=== PATIENT | male | born 1965 | race Hispanic/Latino ===

== ENCOUNTER 2016-10-20 10:36 | Inpatient (IN) | payer MEDICAID, OTHER ==
[2016-10-20 10:37] VITALS: BMI 23.1
[2016-10-20 11:51] LABS: BASO % 0.8 % (0.0-2.0); EOS # 0.2 K/uL (0.0-0.7); EOS % 3.4 % (0.0-4.0); HEMATOCRIT 41.2 % (35.0-51.0); LYMPH # 2.7 K/uL (1.0-4.3); LYMPH % 44.8 % (20.0-40.0); MEAN CELL VOLUME 94.5 fL (80.0-94.0); MEAN CORPUSCULAR HEMOGLOBIN 32.2 pg (27.0-31.0); MEAN CORPUSCULAR HGB CONC 34.1 g/dL (33.0-37.0); MEAN PLATELET VOLUME 7.5 fL (7.2-11.7); MONO # 0.4 K/uL (0.0-0.8); MONO % 7.3 % (0.0-10.0); NRBC % 0.1 % (0.0-2.0); WHITE BLOOD COUNT 6.1 K/uL (4.8-10.8)
[2016-10-20 12:00] LABS: CHLORIDE 105 mmol/L (98-107); POTASSIUM 3.9 mmol/L (3.6-5.2); SODIUM 147 mmol/L (132-148)
[2016-10-20 12:02] LABS: ALB/GLOB RATIO 1.6 (1.0-2.1); ALKALINE PHOSPHATASE 44 U/L (38-126); AST/SGOT 36 U/L (17-59); BILIRUBIN,TOTAL 0.3 mg/dL (0.2-1.3); BLOOD UREA NITROGEN 7 mg/dL (9-20); CARBON DIOXIDE 29 mmol/L (22-30); GFR AFRICAN-AMERICAN > 60; TOTAL PROTEIN 7.7 g/dL (6.3-8.3)
[2016-10-20 12:03] LABS: ALT/SGPT 16 U/L (21-72); CALCIUM 8.8 mg/dl (8.6-10.4); GLUCOSE,RANDOM 99 mg/dL (75-110)
--- NOTE | 2016-10-20 12:04 | C.PDOC ---
History Of Present Illness <VinSana L - Last Filed: 10/20/16 18:51> <Yash Atkins E - Last Filed: 10/20/16 20:16> Patient is a 51 year old male who presents to the ER for a psychiatric evaluation. Patient reports suicidal and homocidal ideation with no plan. Patient admits to ETOH use just prior to arrival. Patient is agitated and yelling at staff. History of schizophrenia. Has no physical complaints at this time. (Sana Banuelos) History Per: Patient History/Exam Limitations: intoxication Onset/Duration Of Symptoms: Hrs Current Symptoms Are (Timing): Still Present Suicide/Self Injury Attempted (Context): None Modifying Factor(s): Alcohol Associated Symptoms: Suicidal Thoughts, Other (Homocidal thoughts). denies: Suicidal Plan <Sana Banuelos - Last Filed: 10/20/16 18:51> <Yash Atkins E - Last Filed: 10/20/16 20:16> Time Seen by Provider: 10/20/16 11:39 Chief Complaint (Nursing): Substance Abuse Past Medical History Reviewed: Historical Data, Nursing Documentation, Vital Signs - Medical History PMH: COPD, Depression, Schizophrenia (pt denies.) Family History: States: Unknown Family Hx - Social History Hx Tobacco Use: Yes Hx Alcohol Use: Yes Hx Substance Use: Yes - Immunization History Hx Tetanus Toxoid Vaccination: No Hx Influenza Vaccination: No Hx Pneumococcal Vaccination: No <VinSana L - Last Filed: 10/20/16 18:51> Vital Signs: Last Vital Signs Temp 98.0 F 10/20/16 17:29 Pulse 72 10/20/16 17:29 Resp 20 10/20/16 17:29 BP 97/61 L 10/20/16 17:29 Pulse Ox 97 10/20/16 18:52 - [facility] Procedures ALCOHOL DETOXIFICATION (01/09/15) OTHER GROUP THERAPY (11/09/14) PSYCHIA INTERV/EVAL NEC (11/06/14) Review Of Systems Cardiovascular: Negative for: Chest Pain Respiratory: Negative for: Shortness of Breath Gastrointestinal: Negative for: Nausea, Vomiting Psych: Positive for: Other (Homocidal and suicidal thoughts). Negative for: Suicidal ideation <Sana Banuelos - Last Filed: 10/20/16 18:51> Physical Exam - Physical Exam Appears: Non-toxic, Agitated, Other (ETOH on breath) Skin: Normal Color, Warm, Dry Head: Atraumatic, Normacephalic Eye(s): bilateral: Normal Inspection Nose: Normal Oral Mucosa: Moist Neck: Normal ROM Cardiovascular: Rhythm Regular Respiratory: No Rhonchi, No Wheezing, Other (No acute respiratory distress. Patient speaking in complete sentences.) Extremity: Normal ROM Neurological/Psych: Oriented x3, Normal Speech, Other (agitated, bizarre affect) <Sana Banuelos - Last Filed: 10/20/16 18:51> <Yash Atkins E - Last Filed: 10/20/16 20:16> - Physical Exam Additional Physical Exam Comments: Physical exam limited due to patient not cooperating. (Sana Banuelos) ED Course And Treatment - Laboratory Results Result Diagrams: 10/20/16 11:44 10/20/16 11:44 Lab Interpretation: No Acute Changes O2 Sat by Pulse Oximetry: 97 <Sana Banuelos - Last Filed: 10/20/16 18:51> - Laboratory Results Result Diagrams: 10/20/16 11:44 10/20/16 11:44 Progress Note: Pt was signed out to me at 7pm by Dr. Scherer/SUZANNA Banuelos as already medically clear, pending field crop i farmworker evaluation. Pt will be admitted to psych. housekeeping department worker requested to give pt Librium. <Yash Atkins E - Last Filed: 10/20/16 20:16> Medical Decision Making <Sana Banuelos - Last Filed: 10/20/16 18:51> <Yash Atkins E - Last Filed: 10/20/16 20:16> Medical Decision Making: Labs ordered and reviewed. Patient acutely intoxicated will place on observation. housekeeping department worker made aware (Sana Banuelos) ED OBSERVATION Date of observation admission: 10/20/16 Time of observation admission: 11:14 <Sana Banuelos - Last Filed: 10/20/16 18:51> <Yash Atkins E - Last Filed: 10/20/16 20:16> - Observation admission statement Patient is being placed in observation because:: Acute ETOH intoxication Psychiatric workup (Sana Banuelos) - Goals of Observation Goals of observation are:: Sobriety Psychiatric evaluation (Sana Banuelos) - Progress Note Progress Note: 10/20/16 11:45 BAL is 340. Crisis to evaluate at 20:00 10/20/16 13:59 Patient is asleep 10/20/16 16:45 Patient sleeping in no distress 10/20/16 19:00 Patient signed out to Dr Atkins pending crisis evaluation (Sana Banuelos) Disposition <Sana Banuelos - Last Filed: 10/20/16 18:51> - Disposition Disposition Time: 20:13 <Yash Atkins - Last Filed: 10/20/16 20:16> - Disposition Disposition: HOSPITALIZED Condition: STABLE - Clinical Impression Clinical Impression: Alcohol use disorder - Scribe Statement The provider has reviewed the documentation as recorded by the Scribe <Sana Banuelos - Last Filed: 10/20/16 18:51> <Yash Atkins - Last Filed: 10/20/16 20:16> - Scribe Statement David Carpenter All medical record entries made by the Scribe were at my direction and personally dictated by me. I have reviewed the chart and agree that the record accurately reflects my personal performance of the history, physical exam, medical decision making, and the department course for this patient. I have also personally directed, reviewed, and agree with the discharge instructions and disposition. (Sana Banuelos) Decision To Admit <Sana Banuelos - Last Filed: 10/20/16 18:51> - Pt Status Changed To: Hospital Disposition Of: Inpatient - Admit Certification Admit to Inpatient:: After my assessment, the patient will require hospitalization for at least two midnights. This is because of the severity of symptoms shown, intensity of services needed, and/or the medical risk in this patient being treated as an outpatient. - InPatient: Physician Admission Certification: I certify that this patient requires 2 or more midnights of care for the following reason:: Psych. - . Bed Request Type: Psychiatry Admitting Physician: Cristina Connors <Yash Atkins - Last Filed: 04/18/17 20:16> - . Patient Diagnosis: Alcohol use disorder
[2016-10-20 12:15] LABS: ALCOHOL SERUM 340 mg/dl (0-10)
[2016-10-20 13:18] LABS: URINE BACTERIA RARE (<OCC); URINE BILIRUBIN NEGATIVE (NEGATIVE); URINE BLOOD NEGATIVE (NEGATIVE); URINE COLOR Straw (YELLOW); URINE GLUCOSE (UA) NORMAL (Normal); URINE KETONE NEGATIVE (NEGATIVE); URINE LEUKOCYTE ESTERASE NEG Leu/uL (Negative); URINE PROTEIN NEGATIVE (NEGATIVE); URINE UROBILINOGEN NORMAL mg/dL (0.2-1.0); WBC URINE < 1 /hpf (0-5)
--- NOTE | 2016-10-21 10:22 | PCM.PSYCH ---
Initial Psychiatric Evaluation - Initial Psychiatric Evaluation Type of Admission: Voluntary Legal Status: Capacity Chief Complaint (in patient's own words): "I was suicidal" History of Present Illness and Precipitating Events: The pt is seen, chart reviewed, case discussed. This is a 51 yo WM, with 2 daughters, living with his father in [facility]. He is unemployed, not on disability and used to be homess. He is here for depression and SI with a plan to cut wrists. He says he is no longer suicidal but feels down still. Depressed for few weeks He admits to having relapsed after few months s/p discharge from last year. He drinks 12 of the 24 oz beers or 2 pints of vodka. He had wdw sxs but Ok with librium now. Denies drug use Denies psychotic or manic sxs Stressors; financial Past psych hx: Numerous admissions and 2 miranda attempts "long ago" He also used cocaine, mescalin, PC and MJ in the past Medical hx: Denies Family psych hx: Alcoholism in many people Current Medications: Active Medications Generic Name Dose Route Start Last Admin Trade Name Freq PRN Reason Stop Dose Admin Chlordiazepoxide 25 mg 10/20/16 20:56 10/20/16 21:48 Librium PO 10/24/16 20:57 25 mg Q4H PRN Administration Alcohol Withdrawal Chlordiazepoxide 25 mg 10/21/16 00:00 10/21/16 06:35 Librium PO 10/24/16 23:59 25 mg Q6 TAYA Administration Taper Clonidine HCl 0.1 mg 10/20/16 20:56 Catapres PO Q4H PRN Symptoms of alcohol withdrawl Fluoxetine HCl 20 mg 10/21/16 10:00 Prozac PO DAILY TAYA Folic Acid 1 mg 10/21/16 10:00 Folic Acid PO DAILY TAYA Gabapentin 300 mg 10/21/16 10:00 Neurontin PO BID TAYA Hydroxyzine HCl 50 mg 10/20/16 20:57 Atarax PO Q6H PRN Anxiety Ibuprofen 600 mg 10/20/16 20:57 Motrin Tab PO Q6H PRN Pain, moderate (4-7) Multivitamins 1 tab 10/21/16 10:00 Hexavitamin PO DAILY TAYA Thiamine HCl 100 mg 10/21/16 10:00 Vitamin B1 Tab PO DAILY TAYA Trazodone HCl 100 mg 10/20/16 20:56 10/20/16 21:47 Desyrel PO 100 mg HS PRN Administration Insomnia Past Psychiatric History - Past Psychiatric History Previous Treatment History: Inpatient Pertinent Medical Hx (Current Medical&Sleep Prob, Allergies): Allergies Allergy/AdvReac Type Severity Reaction Status Date / Time No Known Allergies Allergy Verified 11/26/15 12:26 No Known Home Med 09/19/15 Review of Systems - Neurological Neurological: UNREMARKABLE - Psychiatric Psychiatric: Abnormal Sleep Pattern, Anhedonia, Anxiety, Change in Appetite, Depression, Difficulty Concentrating, Irritability. absent: Hallucinations, Homicidal Ideation, Suicidal Ideation Mental Status Examination - Personal Presentation Personal Presentation: Looks stated age - Affect Affect: Constricted - Motor Activity Motor Activity: Calm - Reliability in Providing Information Reliability in Providing Information: Good - Speech Speech: Organized - Mood Mood: Depressed, Anxious - Formal Thought Process Formal Thought Process: No Impairment - Cognitive Functions Orientation: Person, Place, Situation, Time Sensorium: Alert Attention/Concentration: Attentive Estimate of Intelligence: Average Judgement: Imparied, as evidence by: Poor judgement Memory: Recent intact, as evidence by: Ability to recall events of the day, Remote intact, as evidenced by: Abilit to recall sig. life events - Risk Risk: Seizure, Withdrawal, Diminished functioning - Limitations Limitations: Living alone DSM 5 DX - DSM 5 DSM 5 Diagnosis: Major depressive d/o - recurrent, severe, non-psychotic Alcohol withdrawal Alcohol use d/o -severe - Recommended/Plan of Treatment Treatment Recommendations and Plan of Treatment: Depression: - Prozac - Support and psychoed - Indiv tx - Groups and activities Alcohol: - Librium detox - gabapentin - GA for abstinence - groups and activities - As needed meds 33 min Projected ELOS: 5 days Prognosis: good Discharge Plan and Discharge Criteria: no SI or alcohol wdw refer to IOP - Smoking Cessation Smoking Cessation Initiated: Yes
[2016-10-21] MEDS: Multiple Vitamins Tab PO SCH (11:24)
[2016-10-22] MEDS: Multiple Vitamins Tab PO SCH (10:33)
--- NOTE | 2016-10-22 23:30 | PCM.PYCHPN ---
Psychiatric Progress Note - Psychiatric Progress Note Patient seen today, length of contact: 17 min Patient Chief Complaint: "I couldn't sleep well" Problems Identified/Issues Discussed: The pt is seen, chart reviewed, case discussed with staff. The pt is compliant with medications and reports no side-effects. Symptoms are improving but needs more time to stabilize. After care discussed, support and psychoeducation given. NV and CBT used briefly. Medication Change: Yes (detox changes daily) Medical Record Reviewed: Yes Mental Status Examination - Cognitive Function Orientation: Person, Place, Situation, Time Memory: Impaired Attention: Poor Concentration: Poor Association: Loose Fund of Knowledge: Poor - Mood Mood: Depressed, Anxious - Affect Affect: Constricted - Speech Speech: Appropriate - Formal Thought Process Formal Thought Process: No Impairment - Suicidal Ideation Suicidal Ideation: No - Homicidal Ideation Homicidal Ideation: No Goal/Treatment Plan - Goal/Treatment Plan Need for Continued Stay: Discharge may exacerbated symptoms, Severe functional impairment Progress Toward Problem(s) and Goals/Treatment Plan: Depression: - Prozac - Support and psychoed - Indiv tx - Groups and activities Alcohol: - Librium detox - gabapentin - NV for abstinence - groups and activities - As needed meds Estimated Date of D/C: 10/28/16
[2016-10-23] MEDS: Multiple Vitamins Tab PO SCH (11:01)
--- NOTE | 2016-10-23 14:53 | PCM.PYCHPN ---
Psychiatric Progress Note - Psychiatric Progress Note Patient seen today, length of contact: 16 min Patient Chief Complaint: "I am better today" Problems Identified/Issues Discussed: The pt is seen, chart reviewed, case discussed with staff. Symptoms of depression and withdrawal are improving. He is more social After care discussed, will go to [place] [facility]. Support and psychoeducation given. AR and CBT used briefly. Medication Change: Yes (detox changes daily) Medical Record Reviewed: Yes Mental Status Examination - Cognitive Function Orientation: Person, Place, Situation, Time Memory: Impaired Attention: Poor Concentration: Poor Association: WNL Fund of Knowledge: Poor - Mood Mood: Depressed, Anxious - Affect Affect: Constricted - Speech Speech: Appropriate - Formal Thought Process Formal Thought Process: No Impairment - Suicidal Ideation Suicidal Ideation: No - Homicidal Ideation Homicidal Ideation: No Goal/Treatment Plan - Goal/Treatment Plan Need for Continued Stay: Discharge may exacerbated symptoms, Severe functional impairment Progress Toward Problem(s) and Goals/Treatment Plan: Depression: - Prozac - Support and psychoed - Indiv tx - Groups and activities Alcohol: - Librium detox - gabapentin - AR for abstinence - groups and activities - As needed meds Estimated Date of D/C: 10/28/16 - Smoking Cessation Smoking Cessation Initiated: Yes
[2016-10-24] MEDS: Multiple Vitamins Tab PO SCH (09:41)
--- NOTE | 2016-10-24 12:48 | PCM.PYCHPN ---
Psychiatric Progress Note - Psychiatric Progress Note Patient seen today, length of contact: 16 min Patient Chief Complaint: I'm still feeling withdrawal symptoms Problems Identified/Issues Discussed: Patient seen and evaluated, chart reviewed and discussed with the nurse. The patient reports improvement in his mood but still reports withdrawal symptoms including shakes, anxiety, headaches and sweating. As per the nurse yesterday he was reporting depressed mood. But today he is hopeful and denies any suicidal ideation or homicidal ideation. He is taking medications and denies any side effects. Supportive therapy and psychoeducation were given. Medication Change: Yes (Librium when necessary) Medical Record Reviewed: Yes Mental Status Examination - Cognitive Function Orientation: Person, Place, Situation, Time Memory: Impaired Attention: Poor Concentration: Poor Association: WNL Fund of Knowledge: Poor - Mood Mood: Depressed, Anxious - Affect Affect: Constricted - Speech Speech: Appropriate - Formal Thought Process Formal Thought Process: No Impairment - Suicidal Ideation Suicidal Ideation: No - Homicidal Ideation Homicidal Ideation: No Goal/Treatment Plan - Goal/Treatment Plan Need for Continued Stay: Discharge may exacerbated symptoms, Severe functional impairment Progress Toward Problem(s) and Goals/Treatment Plan: Major depressive d/o - recurrent, severe, non-psychotic Alcohol withdrawal Alcohol use d/o -severe - Recommended/Plan of Treatment Treatment Recommendations and Plan of Treatment: Depression: - Prozac - Support and psychoed - Indiv tx - Groups and activities Alcohol: - Librium detox - gabapentin - [place] for abstinence - groups and activities - As needed meds Estimated Date of D/C: 10/28/16 - Smoking Cessation Smoking Cessation Initiated: No
[2016-10-25 07:45] VITALS: O2SAT 99
[2016-10-25] MEDS: Multiple Vitamins Tab PO SCH (09:00)
--- NOTE | 2016-10-25 22:06 | PCM.PYCHPN ---
Psychiatric Progress Note - Psychiatric Progress Note Patient seen today, length of contact: 16 min Patient Chief Complaint: Feeling little better Problems Identified/Issues Discussed: Patient seen and evaluated, chart reviewed and discussed with the nurse. Today patient reports improvement his mood and reports improvement in the withdrawal symptoms. However history reports depressed mood and withdrawal symptoms including anxiety, headaches and sweating. He is taking medications and denies any side effects. Supportive therapy and psychoeducation were given. Medication Change: No Medical Record Reviewed: Yes Mental Status Examination - Cognitive Function Orientation: Person, Place, Situation, Time Memory: Impaired Attention: WNL Concentration: Poor Association: WNL Fund of Knowledge: Poor - Mood Mood: Anxious - Affect Affect: Constricted - Speech Speech: Appropriate - Formal Thought Process Formal Thought Process: No Impairment - Suicidal Ideation Suicidal Ideation: No - Homicidal Ideation Homicidal Ideation: No Goal/Treatment Plan - Goal/Treatment Plan Need for Continued Stay: Discharge may exacerbated symptoms, Severe functional impairment Progress Toward Problem(s) and Goals/Treatment Plan: Major depressive d/o - recurrent, severe, non-psychotic Alcohol withdrawal Alcohol use d/o -severe - Recommended/Plan of Treatment Treatment Recommendations and Plan of Treatment: Depression: - Prozac - Support and psychoed - Indiv tx - Groups and activities Alcohol: - Librium detox - gabapentin - GA for abstinence - groups and activities - As needed meds Estimated Date of D/C: 10/28/16
[2016-10-26] MEDS: Multiple Vitamins Tab PO SCH (09:38)
--- NOTE | 2016-10-26 16:09 | PCM.PYCHPN ---
Psychiatric Progress Note - Psychiatric Progress Note Patient seen today, length of contact: 16 min Patient Chief Complaint: "I am feeling so so today" Problems Identified/Issues Discussed: The pt is seen, chart reviewed, case discussed with staff Symptoms of depression are improving but patient reports not sleeping well and having shakes and sweats at night. Patient is done with taper and aftercare was discussed. He will go to [facility]. Patient denies any suicidal ideation. Support and psychoeducation given. Medication Change: Yes (Gabapentin) Medical Record Reviewed: Yes Mental Status Examination - Cognitive Function Orientation: Person, Place, Situation, Time Memory: Intact Attention: WNL Concentration: WNL Association: WNL Fund of Knowledge: Poor - Mood Mood: Anxious - Affect Affect: Constricted - Speech Speech: Appropriate - Formal Thought Process Formal Thought Process: No Impairment - Suicidal Ideation Suicidal Ideation: No - Homicidal Ideation Homicidal Ideation: No Goal/Treatment Plan - Goal/Treatment Plan Need for Continued Stay: Severe depression anxiety, Discharge may exacerbated symptoms, Severe functional impairment Progress Toward Problem(s) and Goals/Treatment Plan: Depression: - Prozac - Support and psychoed - Indiv tx - Groups and activities Alcohol: - Librium detox - gabapentin - [place] for abstinence - groups and activities - As needed meds Estimated Date of D/C: 10/27/16 ([facility]) - Smoking Cessation Smoking Cessation Initiated: No
[2016-10-27] MEDS: Multiple Vitamins Tab PO SCH (09:45)
--- NOTE | 2016-10-27 16:12 | PCM.PYCHPN ---
Psychiatric Progress Note - Psychiatric Progress Note Patient seen today, length of contact: 18 min Patient Chief Complaint: "My mood isn't good" Problems Identified/Issues Discussed: The pt is seen, chart reviewed, case discussed with staff Pt reports that although he is feeling better he still has some shakiness and trouble sleeping. He took an extra dose of Librium last night. His mood has not been good and finds himself getting easily aggravated by other people in the unit but has not reacted. Aftercare was discussed and patient will go to [facility]. Strategies to avoid relapse were discussed such as attending worship and avoiding friends that drink. Patient denies S/I. Support and psychoeducation given. Medication Change: Yes (Gabapentin) Medical Record Reviewed: Yes Mental Status Examination - Cognitive Function Orientation: Person, Place, Situation, Time Memory: Intact Attention: WNL Concentration: WNL Association: WNL Fund of Knowledge: Poor - Mood Mood: Anxious - Affect Affect: Constricted - Speech Speech: Appropriate - Formal Thought Process Formal Thought Process: No Impairment - Suicidal Ideation Suicidal Ideation: No - Homicidal Ideation Homicidal Ideation: No Goal/Treatment Plan - Goal/Treatment Plan Need for Continued Stay: Severe depression anxiety, Discharge may exacerbated symptoms, Severe functional impairment Progress Toward Problem(s) and Goals/Treatment Plan: Depression -Prozac -support and psychoeducation -Individual therapy -Participation in groups and activities Alcohol -Medications as needed -TN for abstinence -groups and activities -support and psychoeducation Estimated Date of D/C: 10/28/16 ([facility])
--- NOTE | 2016-10-28 09:44 | PCM.PYCHDC ---
Mental Status Examination - Mental Status Examination Orientation: Person, Place, Situation, Time Memory: Intact Mood: Anxious Affect: Broad Speech: Appropriate Attention: WNL Concentration: WNL Association: WNL Fund of Knowledge: WNL Formal Thought Process: No Impairment Suicidal Ideation: No Current Homicidal Ideation?: No Discharge Summary - Discharge Note Reason for Hospitalization: Pt presented to the ER for depression and SI with a plan to cut wrists Consultations:: List each consultation separately and include: 1. Reason for request. 2. Findings. 3. Follow-up Summary of Hospital Course include:: 1. Description of specific treatment plan utilized for patients during their course of treatmen. 2. Summarize the time- course for resolution of acute symptoms and/or regressed behaviors. 3. Describe issues identified and worked on during hospitalization. 4. Describe medication utilized. 5. Describe medical problems identified and treated. 6. Reassessment of suicide risk Summary of Hospital Course: The pt is seen, chart reviewed, case discussed. On admission: This is a 51 yo WM, with 2 daughters, living with his father in [facility]. He is unemployed, not on disability and used to be homess. He is here for depression and SI with a plan to cut wrists. He says he is no longer suicidal but feels down still. Depressed for few weeks He admits to having relapsed after few months s/p discharge from last year. He drinks 12 of the 24 oz beers or 2 pints of vodka. He had wdw sxs but Ok with librium now. Denies drug use Denies psychotic or manic sxs Stressors; financial Past psych hx: Numerous admissions and 2 miranda attempts "long ago" He also used cocaine, mescalin, PC and MJ in the past Medical hx: Denies Family psych hx: Alcoholism in many people Hospital course: Pt reports that he is feeling ok and has some anxiety. He denies any S/I. He slept well last night and denies any withdrawal symptoms. After care was discussed and he will be going home to live with his father and continue with treatment at [facility]. Support and psychoeducation was given. Attended groups and activities ID, CBT used Librium detox completed Pt responded well to treatment but still carries a risk of relapse due to minimizing his need for treatment. - Final Diagnosis (DSM 5) Condition upon Discharge: GOOD DSM 5: Major depressive d/o - recurrent, severe, non-psychotic Alcohol use d/o -severe Alcohol withdrawal Disposition: HOME/ ROUTINE Follow-up Treatment Plan: Continue below meds Attend aftercare: FOC Use relapse prevention skills Attend AA Return to ER if experience suicidal ideation, homicidal ideation, agitation Prescriptions/Medication Reconciliation: FLUoxetine [Prozac] 20 mg PO DAILY #30 cap Gabapentin [Neurontin] 300 mg PO BID #60 cap traZODone [Desyrel] 100 mg PO HS PRN #30 tab PRN Reason: Insomnia - Smoking Cessation Smoking Cessation Medication prescribed: No - Antipsychotic Medications Pt discharged on 2 or more routine antipsychotic medications: No
[2016-10-28] MEDS: Multiple Vitamins Tab PO SCH (09:47)
[2016-10-28 10:20] VITALS: BP 100/64; PULSE 73; RESP 19; TEMP 97.8
== END 2016-10-28 14:15 | disposition home or self-care (01) | DRG 750 ==
LOC: C.ER 10:36 → C.9OBSV 11:52 → OBSVTOIN 20:16 → C.5E 20:34
PROVIDERS: ADMIT Psychiatry & Neurology Psychiatry; ATTEND Psychiatry & Neurology Psychiatry
PROC: HZ2ZZZZ Detoxification Services for Substance Abuse Treatment (ICD-10-PCS; principal; 2016-10-21)
PROC: HZ36ZZZ Individual Counseling for Substance Abuse Treatment, Psychoeducation (ICD-10-PCS; 2016-10-21)
PROC: HZ46ZZZ Group Counseling for Substance Abuse Treatment, Psychoeducation (ICD-10-PCS; 2016-10-21)
PROC: HZ59ZZZ Individual Psychotherapy for Substance Abuse Treatment, Supportive (ICD-10-PCS; 2016-10-21)
DX: F10.220 Alcohol dependence with intoxication, uncomplicated (principal); J44.9 Chronic obstructive pulmonary disease, unspecified; R45.851 Suicidal ideations; F33.2 Major depressive disorder, recurrent severe without psychotic features; F20.9 Schizophrenia, unspecified; F10.239 Alcohol dependence with withdrawal, unspecified; Y90.8 Blood alcohol level of 240 mg/100 ml or more; F41.9 Anxiety disorder, unspecified

== ENCOUNTER 2016-12-14 08:25 | Inpatient (IN) | payer MEDICAID, OTHER ==
[2016-12-14 08:31] VITALS: BMI 18.2
[2016-12-14] MEDS ORDERED: Sodium Chloride 0.9% 1,000 ML IV ONE (08:37)
[2016-12-14] MEDS ORDERED: Sodium Chloride 0.9% 1,000 ML ONE (09:03)
[2016-12-14 09:10] LABS: BASO # 0.1 K/uL (0.0-0.2); EOS # 0.3 K/uL (0.0-0.7); EOS % 4.6 % (0.0-4.0); HEMATOCRIT 41.8 % (35.0-51.0); LYMPH # 2.9 K/uL (1.0-4.3); LYMPH % 49.3 % (20.0-40.0); MEAN CELL VOLUME 93.9 fL (80.0-94.0); MEAN CORPUSCULAR HEMOGLOBIN 31.7 pg (27.0-31.0); MEAN CORPUSCULAR HGB CONC 33.8 g/dL (33.0-37.0); MEAN PLATELET VOLUME 7.6 fL (7.2-11.7); MONO # 0.5 K/uL (0.0-0.8); MONO % 7.9 % (0.0-10.0); RED CELL DISTRIBUTION WIDTH 13.7 % (11.5-14.5); WHITE BLOOD COUNT 5.8 K/uL (4.8-10.8)
[2016-12-14 09:27] LABS: CHLORIDE 102 mmol/L (98-107); SODIUM 140 mmol/L (132-148)
[2016-12-14 09:28] LABS: POTASSIUM 3.9 mmol/L (3.6-5.2)
[2016-12-14 09:30] LABS: ALB/GLOB RATIO 1.6 (1.0-2.1); ALKALINE PHOSPHATASE 43 U/L (38-126); ALT/SGPT 14 U/L (21-72); AST/SGOT 31 U/L (17-59); BILIRUBIN,TOTAL 0.5 mg/dL (0.2-1.3); BLOOD UREA NITROGEN 6 mg/dL (9-20); CARBON DIOXIDE 25 mmol/L (22-30); GFR AFRICAN-AMERICAN > 60; GLUCOSE,RANDOM 114 mg/dL (75-110); TOTAL PROTEIN 6.8 g/dL (6.3-8.3)
[2016-12-14 09:31] LABS: CALCIUM 8.4 mg/dl (8.6-10.4)
--- NOTE | 2016-12-14 09:34 | C.PDOC ---
History Of Present Illness 51 yr old male presents to the ER stating " doesn't feel right" and is also requesting detox from alcohol. Reports last drink was this morning. Denies chest pain, SOB, nausea, vomiting, abdominal pain, headache, weakness, numbness , SI or HI. Time Seen by Provider: 12/14/16 08:33 Chief Complaint (Nursing): Substance Abuse History Per: Patient History/Exam Limitations: no limitations Onset/Duration Of Symptoms: Persistent Current Symptoms Are (Timing): Still Present Modifying Factor(s): Alcohol Past Medical History Reviewed: Historical Data, Nursing Documentation, Vital Signs Vital Signs: Last Vital Signs Temp 99.0 F 12/14/16 08:31 Pulse 72 12/14/16 16:43 Resp 18 12/14/16 16:43 BP 109/64 12/14/16 16:43 Pulse Ox 99 12/14/16 16:43 - Medical History PMH: COPD, Depression, Schizophrenia (pt denies.) - [facility] Procedures ALCOHOL DETOXIFICATION (01/09/15) DETOXIFICATION SERVICES FOR SUBSTANCE ABUSE TREATMENT (10/20/16) GROUP INFORMATION ASSURANCE ANALYST FOR SUBSTANCE ABUSE TREATMENT, PSYCHOEDUCATION (10/20/16) INDIV INFORMATION ASSURANCE ANALYST FOR SUBSTANCE ABUSE TREATMENT, PSYCHOEDUCATION (10/20/16) INDIV PSYCHOTHERAPY FOR SUBSTANCE ABUSE TREATMENT, SUPPORT (10/20/16) OTHER GROUP THERAPY (11/09/14) PSYCHIA INTERV/EVAL NEC (11/06/14) Family History: States: No Known Family Hx - Social History Hx Tobacco Use: Yes Hx Alcohol Use: Yes Hx Substance Use: Yes - Immunization History Hx Tetanus Toxoid Vaccination: No Hx Influenza Vaccination: No Hx Pneumococcal Vaccination: No Review Of Systems Except As Marked, All Systems Reviewed And Found Negative. Cardiovascular: Negative for: Chest Pain Respiratory: Negative for: Shortness of Breath Gastrointestinal: Negative for: Nausea, Vomiting, Abdominal Pain Neurological: Negative for: Headache Psych: Negative for: Suicidal ideation Physical Exam - Physical Exam Appears: Well, Non-toxic, No Acute Distress Skin: Warm, Dry, No Rash Head: Atraumatic, Normacephalic Oral Mucosa: Moist Chest: Symmetrical, No Tenderness Cardiovascular: Rhythm Regular, No Murmur Respiratory: Normal Breath Sounds, No Rales, No Rhonchi, No Wheezing Gastrointestinal/Abdominal: Normal Exam, Soft, No Tenderness, No Guarding, No Rebound Extremity: Normal ROM, No Swelling Neurological/Psych: Oriented x3, Normal Speech, Normal Motor ED Course And Treatment - Laboratory Results Result Diagrams: 12/14/16 09:02 12/14/16 09:02 O2 Sat by Pulse Oximetry: 97 Medical Decision Making Medical Decision Making: PLAN: * Alcohol Serum * Drug Screen * Lipase * CBC * CMP * Pepcid IVP * Zofran IVP * Sodium Chloride IV Disposition - Disposition Disposition: HOSPITALIZED Disposition Time: 16:00 Condition: STABLE - Clinical Impression Clinical Impression: Alcohol use disorder - Scribe Statement The provider has reviewed the documentation as recorded by the Marleniibnelida Harris Provider Attestation: All medical record entries made by the Keerthi were at my direction and personally dictated by me. I have reviewed the chart and agree that the record accurately reflects my personal performance of the history, physical exam, medical decision making, and the department course for this patient. I have also personally directed, reviewed, and agree with the discharge instructions and disposition.
[2016-12-14 10:05] LABS: ALCOHOL SERUM 329 mg/dl (0-10)
[2016-12-14 17:06] LABS: RBC URINE < 1 /hpf (0-3); URINE BILIRUBIN NEGATIVE (NEGATIVE); URINE BLOOD NEGATIVE (NEGATIVE); URINE COLOR Straw (YELLOW); URINE GLUCOSE (UA) NORMAL (Normal); URINE KETONE NEGATIVE (NEGATIVE); URINE LEUKOCYTE ESTERASE NEG Leu/uL (Negative); URINE PROTEIN NEGATIVE (NEGATIVE); URINE UROBILINOGEN NORMAL mg/dL (0.2-1.0)
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
[2016-12-15] MEDS: Multiple Vitamins Tab PO SCH (10:58)
[2016-12-16] MEDS: Multiple Vitamins Tab PO SCH (09:07)
--- NOTE | 2016-12-16 13:52 | PCM.PYCHPN ---
Psychiatric Progress Note - Psychiatric Progress Note Patient seen today, length of contact: 16 min Patient Chief Complaint: "I am not well but better" Problems Identified/Issues Discussed: The pt is seen, chart reviewed, case discussed with staff. The pt is compliant with medications and reports no side-effects. Symptoms are improving but needs more time to stabilize. After care discussed, support and psychoeducation given. Medication Change: Yes (detox changes daily) Medical Record Reviewed: Yes Mental Status Examination - Cognitive Function Orientation: Person, Place, Situation, Time Memory: Intact Attention: WNL Concentration: Poor Association: WNL Fund of Knowledge: Poor - Mood Mood: Anxious - Affect Affect: Constricted - Speech Speech: Appropriate - Formal Thought Process Formal Thought Process: No Impairment - Suicidal Ideation Suicidal Ideation: No - Homicidal Ideation Homicidal Ideation: No Goal/Treatment Plan - Goal/Treatment Plan Need for Continued Stay: Discharge may exacerbated symptoms, Severe functional impairment Progress Toward Problem(s) and Goals/Treatment Plan: Librium detox gabapentin Support and pscyhoed Mi and CBT attend groups and activities Refer to rehab Support and cbt for depression
[2016-12-17] MEDS: Multiple Vitamins Tab PO SCH (09:17)
--- NOTE | 2016-12-17 13:13 | PCM.PYCHPN ---
Psychiatric Progress Note - Psychiatric Progress Note Patient seen today, length of contact: 16 min Patient Chief Complaint: "I am better" Problems Identified/Issues Discussed: The pt is seen, chart reviewed, case discussed with staff. Symptoms of withdrawal are improving but needs more time to stabilize. OK used After care discussed, support and psychoeducation given. Medication Change: Yes (detox changes daily) Medical Record Reviewed: Yes Mental Status Examination - Cognitive Function Orientation: Person, Place, Situation, Time Memory: Intact Attention: WNL Concentration: Poor Association: WNL Fund of Knowledge: Poor - Mood Mood: Anxious - Affect Affect: Constricted - Speech Speech: Appropriate - Formal Thought Process Formal Thought Process: No Impairment - Suicidal Ideation Suicidal Ideation: No - Homicidal Ideation Homicidal Ideation: No Goal/Treatment Plan - Goal/Treatment Plan Need for Continued Stay: Discharge may exacerbated symptoms, Severe functional impairment Progress Toward Problem(s) and Goals/Treatment Plan: Librium detox gabapentin Support and pscyhoed Mi and CBT attend groups and activities Refer to rehab Support and cbt for depression Estimated Date of D/C: 12/18/16
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
[2016-12-18] MEDS: Multiple Vitamins Tab PO SCH (09:15)
[2016-12-18 09:32] VITALS: BP 100/65; PULSE 70; RESP 16; TEMP 97.6; O2SAT 97
== END 2016-12-18 10:10 | disposition home or self-care (01) | DRG 750 ==
LOC: C.ER 08:25 → C.7D 17:17
PROVIDERS: ADMIT Psychiatry & Neurology Psychiatry; ATTEND Psychiatry & Neurology Psychiatry
PROC: HZ2ZZZZ Detoxification Services for Substance Abuse Treatment (ICD-10-PCS; principal; 2016-12-15)
PROC: HZ52ZZZ Individual Psychotherapy for Substance Abuse Treatment, Cognitive-Behavioral (ICD-10-PCS; 2016-12-15)
PROC: HZ59ZZZ Individual Psychotherapy for Substance Abuse Treatment, Supportive (ICD-10-PCS; 2016-12-15)
PROC: HZ56ZZZ Individual Psychotherapy for Substance Abuse Treatment, Psychoeducation (ICD-10-PCS; 2016-12-15)
PROC: GZHZZZZ Group Psychotherapy (ICD-10-PCS; 2016-12-15)
DX: F10.230 Alcohol dependence with withdrawal, uncomplicated (principal); J44.9 Chronic obstructive pulmonary disease, unspecified; F33.40 Major depressive disorder, recurrent, in remission, unspecified; F20.9 Schizophrenia, unspecified; F17.210 Nicotine dependence, cigarettes, uncomplicated; Y90.8 Blood alcohol level of 240 mg/100 ml or more

== ENCOUNTER 2017-06-21 17:18 | Emergency (ER) | payer OTHER ==
[2017-06-21 17:18] VITALS: BMI 18.2
[2017-06-21 18:08] VITALS: BP 101/66; PULSE 85; RESP 15; TEMP 98.1; O2SAT 97
== END 2017-06-21 18:06 | disposition left against medical advice (07) ==
LOC: C.ER 17:18
DX: Z02.89 Encounter for other administrative examinations (principal); Z00.00 Encounter for general adult medical examination without abnormal findings

== ENCOUNTER 2017-08-19 21:59 | Emergency (ER) | payer OTHER ==
[2017-08-19 21:59] VITALS: BMI 18.2
[2017-08-19 22:43] VITALS: BP 107/71; PULSE 66; RESP 20; TEMP 97.3; O2SAT 100
== END 2017-08-19 22:51 | disposition left against medical advice (07) ==
LOC: C.ER 21:59
DX: Z02.89 Encounter for other administrative examinations (principal); F10.129 Alcohol abuse with intoxication, unspecified

== ENCOUNTER 2017-09-01 20:04 | Emergency (ER) | payer OTHER ==
[2017-09-01 20:04] VITALS: BMI 18.2
[2017-09-01 20:48] VITALS: BP 110/72; PULSE 70; RESP 18; TEMP 97.9; O2SAT 97
== END 2017-09-01 20:45 | disposition left against medical advice (07) ==
LOC: C.ER 20:04
DX: Z02.89 Encounter for other administrative examinations (principal); F19.10 Other psychoactive substance abuse, uncomplicated

== ENCOUNTER 2017-11-05 12:13 | Inpatient (IN) | payer MEDICAID, OTHER ==
[2017-11-05 12:22] VITALS: BMI 19.5
[2017-11-05 13:28] LABS: BASO # 0.1 K/uL (0.0-0.2); BASO % 1.2 % (0.0-2.0); EOS # 0.3 K/uL (0.0-0.7); EOS % 3.2 % (0.0-4.0); HEMOGLOBIN 15.3 g/dL (12.0-18.0); LYMPH # 3.6 K/uL (1.0-4.3); LYMPH % 43.9 % (20.0-40.0); MEAN CELL VOLUME 94.7 fL (80.0-94.0); MEAN CORPUSCULAR HEMOGLOBIN 33.3 pg (27.0-31.0); MEAN CORPUSCULAR HGB CONC 35.2 g/dL (33.0-37.0); MEAN PLATELET VOLUME 7.1 fL (7.2-11.7); MONO # 0.5 K/uL (0.0-0.8); MONO % 5.8 % (0.0-10.0); NEUT # 3.8 K/uL (1.8-7.0); NEUT % 45.9 % (50.0-75.0); NRBC % 0.1 % (0.0-2.0); RBC 4.59 Mil/uL (4.40-5.90); RED CELL DISTRIBUTION WIDTH 13.9 % (11.5-14.5); WHITE BLOOD COUNT 8.3 K/uL (4.8-10.8)
--- NOTE | 2017-11-05 13:29 | C.PDOC ---
History Of Present Illness 52 year old male, with PMHx of depression, presents to ED for evaluation of suicidal ideation. Pt admits to substance abuse. Denies HI, or any active physical complaints at this time. Time Seen by Provider: 11/05/17 12:32 Chief Complaint (Nursing): Psychiatric Evaluation History Per: Patient History/Exam Limitations: no limitations Onset/Duration Of Symptoms: Gradual Current Symptoms Are (Timing): Still Present Suicide/Self Injury Attempted (Context): None Severity: None Pain Scale Rating Of: 0 Associated Symptoms: Suicidal Thoughts Involuntary Hold By: None Recent travel outside of the [place]: No Additional History Per: Patient Past Medical History Reviewed: Historical Data, Nursing Documentation, Vital Signs Vital Signs: Last Vital Signs Temp 97.8 F 11/05/17 15:51 Pulse 96 H 11/05/17 15:51 Resp 18 11/05/17 15:51 BP 104/61 11/05/17 15:51 Pulse Ox 97 11/05/17 15:51 - Medical History PMH: COPD, Depression, Schizophrenia Denies: Diabetes, Hepatitis, HIV, HTN, Chronic Kidney Disease, Seizures, Sexually Transmitted Disease - [facility] Procedures ALCOHOL DETOXIFICATION (01/09/15) DETOXIFICATION SERVICES FOR SUBSTANCE ABUSE TREATMENT (12/14/16) GROUP ACOUSTICAL INSTALLER FOR SUBSTANCE ABUSE TREATMENT, PSYCHOEDUCATION (10/20/16) GROUP PSYCHOTHERAPY (12/14/16) INDIV ACOUSTICAL INSTALLER FOR SUBSTANCE ABUSE TREATMENT, PSYCHOEDUCATION (10/20/16) INDIV PSYCHOTHERAPY FOR SUBSTANCE ABUSE TREATMENT, SUPPORT (12/14/16) INDIV PSYCHOTHERAPY FOR SUBSTANCE ABUSE, COGNITIV BEHAVIORAL (12/14/16) INDIV PSYCHOTHERAPY FOR SUBSTANCE ABUSE, PSYCHOEDUCATION (12/14/16) OTHER GROUP THERAPY (11/09/14) PSYCHIA INTERV/EVAL NEC (11/06/14) Family History: States: Unknown Family Hx - Social History Hx Tobacco Use: Yes Hx Alcohol Use: Yes Hx Substance Use: No (DENIES) - Immunization History Hx Tetanus Toxoid Vaccination: No Hx Influenza Vaccination: No Hx Pneumococcal Vaccination: No Review Of Systems Except As Marked, All Systems Reviewed And Found Negative. Constitutional: Negative for: Fever, Chills Cardiovascular: Negative for: Chest Pain, Palpitations Respiratory: Negative for: Cough, Shortness of Breath Gastrointestinal: Negative for: Nausea, Vomiting Psych: Positive for: Suicidal ideation Physical Exam - Physical Exam Appears: Non-toxic, No Acute Distress Skin: Normal Color, Warm, Dry Head: Atraumatic, Normacephalic Eye(s): bilateral: Normal Inspection Oral Mucosa: Moist Cardiovascular: Rhythm Regular Respiratory: Normal Breath Sounds, No Rales, No Rhonchi, No Wheezing Extremity: Normal ROM, No Deformity Neurological/Psych: Oriented x3, Normal Speech, Other (flat affect) ED Course And Treatment - Laboratory Results Result Diagrams: 11/05/17 13:20 11/05/17 13:20 O2 Sat by Pulse Oximetry: 96 Pulse Ox Interpretation: Normal Medical Decision Making Medical Decision Making: Plan: Blood work Urinalysis Crisis evaluation Assessment: suicidal ideation Disposition Discussed With Dr.: Pete Stanton Counseled Patient/Family Regarding: Studies Performed, Diagnosis - Disposition Disposition: HOSPITALIZED Disposition Time: 17:22 Condition: FAIR Forms: [facility] (Mauritian) - Clinical Impression Clinical Impression: Alcohol abuse, Moderate major depression, single episode - Scribe Statement The provider has reviewed the documentation as recorded by the Marleniibnelida Ridley All medical record entries made by the Scribe were at my direction and personally dictated by me. I have reviewed the chart and agree that the record accurately reflects my personal performance of the history, physical exam, medical decision making, and the department course for this patient. I have also personally directed, reviewed, and agree with the discharge instructions and disposition.
[2017-11-05 13:42] LABS: URINE BACTERIA RARE (<OCC); URINE BILIRUBIN NEGATIVE (NEGATIVE); URINE BLOOD NEGATIVE (NEGATIVE); URINE CLARITY Clear (Clear); URINE COLOR Straw (YELLOW); URINE GLUCOSE (UA) NORMAL (Normal); URINE LEUKOCYTE ESTERASE NEG Leu/uL (Negative); URINE PROTEIN NEGATIVE (NEGATIVE); URINE UROBILINOGEN NORMAL mg/dL (0.2-1.0)
[2017-11-05 13:46] LABS: ALB/GLOB RATIO 1.2 (1.0-2.1); ALBUMIN 4.7 g/dL (3.5-5.0); ALT/SGPT 9 U/L (21-72); AST/SGOT 35 U/L (17-59); BLOOD UREA NITROGEN 9 mg/dL (9-20); CALCIUM 9.1 mg/dl (8.6-10.4); GFR AFRICAN-AMERICAN > 60; GFR NON-AFRICAN AMERICAN > 60
[2017-11-05 13:58] LABS: BARBITURATES, UR NEGATIVE (NEGATIVE); BENZODIAZEPINES, UR NEGATIVE (NEGATIVE); OPIATES, UR NEGATIVE (NEGATIVE); PHENCYCLIDINE, UR NEGATIVE (NEGATIVE)
[2017-11-05 17:54] VITALS: O2SAT 97
--- NOTE | 2017-11-05 19:28 | PCM.BM ---
Treatment Plan Problems - Problems identified on initial assessmt Depression Date Initiated: 11/05/17 Time Initiated: 18:00 Assessment reference: NA Status: Active Alcohol Abuse Date Initiated: 11/05/17 Time Initiated: 18:00 Assessment reference: NA Status: Active Treatment assets and liabiliti Patient Assests: adapts well, cooperative, self-reliant, ADL independent, physically healthy, negotiates basic needs, cognitively intact Patient Liabilities: live alone (Homeless), financial problems, substance abuse (Hx of Alcohol, BAL 368 on admission), medical problems (Hx of seizure) - Milieu Protocol Maintain good personal hygiene: daily Encourage regular showers, daily Remind patient to perform daily oral care, daily Assist patient to perform ADL's (Self) Conduct patient checks and document Observation sheet: Q15 minutes (Safety) Maintain personal safety: every shift Educate patient to report safety concerns to staff, every shift Monitor environment for contraband/sharps Medication safety: Monitor for expected outcome, potential side effects: every shift, Assess barriers to learning: every shift, Assess readiness for medication education: every shift
--- NOTE | 2017-11-06 23:32 | PCM.PSYCH ---
Initial Psychiatric Evaluation - Initial Psychiatric Evaluation Type of Admission: Voluntary Legal Status: Capacity Current Medications: Active Medications Generic Name Dose Route Start Last Admin Trade Name Freq PRN Reason Stop Dose Admin Chlordiazepoxide 25 mg 11/06/17 00:00 11/06/17 17:43 Librium PO 11/09/17 23:59 25 mg Q6 TAYA Administration Taper Chlordiazepoxide 25 mg 11/05/17 18:17 11/05/17 19:06 Librium PO 25 mg Q4H PRN Administration Alcohol Withdrawal Chlordiazepoxide 25 mg 11/07/17 00:00 Librium PO 11/10/17 23:59 Q6 TAYA Taper Chlordiazepoxide 25 mg 11/06/17 18:46 Librium PO Q4H PRN Alcohol Withdrawal Fluoxetine HCl 20 mg 11/07/17 10:00 Prozac PO DAILY [facility] Folic Acid 1 mg 11/07/17 10:00 Folic Acid PO DAILY [facility] Gabapentin 400 mg 11/07/17 10:00 Neurontin PO TID [facility] Hydroxyzine HCl 25 mg 11/06/17 18:48 Atarax PO Q6 PRN Anxiety Ibuprofen 400 mg 11/06/17 18:49 Motrin Tab PO Q6 PRN Pain, moderate (4-7) Multivitamins 1 tab 11/07/17 10:00 Hexavitamin PO DAILY [facility] Pneumococcal Polyvalent Vaccine 0.5 ml 11/09/17 10:00 Pneumovax 23 Vaccine IM 11/09/17 10:01 .ONCE ONE Thiamine HCl 100 mg 11/07/17 10:00 Vitamin B1 Tab PO DAILY [facility] Trazodone HCl 50 mg 11/06/17 18:46 11/06/17 21:06 Desyrel PO 50 mg HS PRN Administration Insomnia Past Psychiatric History - Past Psychiatric History Pertinent Medical Hx (Current Medical&Sleep Prob, Allergies): Allergies Allergy/AdvReac Type Severity Reaction Status Date / Time No Known Allergies Allergy Verified 11/05/17 12:20 No Known Home Med 09/01/17
[2017-11-07] MEDS: Multiple Vitamins Tab PO SCH (09:37)
--- NOTE | 2017-11-07 15:34 | PCM.PYCHPN ---
Psychiatric Progress Note - Psychiatric Progress Note Patient seen today, length of contact: 15 Minutes Mental Status Examination - Homicidal Ideation Homicidal Ideation: No
--- NOTE | 2017-11-08 10:57 | PCM.PYCHPN ---
Psychiatric Progress Note - Psychiatric Progress Note Patient seen today, length of contact: 15 Minutes Mental Status Examination - Homicidal Ideation Homicidal Ideation: No
[2017-11-08] MEDS: Multiple Vitamins Tab PO SCH ×2 (13:08→13:16)
[2017-11-09] MEDS: Multiple Vitamins Tab PO SCH (09:45)
[2017-11-09] MEDS ORDERED: Pneumococcal 23-Valent Vaccine IM ONE (10:00)
--- NOTE | 2017-11-09 10:29 | PCM.PYCHPN ---
Psychiatric Progress Note - Psychiatric Progress Note Patient seen today, length of contact: 15 Minutes Mental Status Examination - Homicidal Ideation Homicidal Ideation: No
[2017-11-10 06:36] VITALS: RESP 18
[2017-11-10] MEDS: Multiple Vitamins Tab PO SCH (09:52)
--- NOTE | 2017-11-10 10:11 | PCM.PYCHPN ---
Psychiatric Progress Note - Psychiatric Progress Note Patient seen today, length of contact: 15 Minutes Mental Status Examination - Homicidal Ideation Homicidal Ideation: No
[2017-11-11 06:31] VITALS: BP 106/27; PULSE 70; TEMP 98.1
[2017-11-11] MEDS: Multiple Vitamins Tab PO SCH (10:28)
--- NOTE | 2017-11-11 14:02 | PCM.PYCHDC ---
Mental Status Examination - Mental Status Examination Orientation: Person, Place, Situation, Time Memory: Intact Mood: Neutral Affect: Constricted Speech: Soft Attention: WNL Concentration: WNL Association: WNL Fund of Knowledge: WNL Formal Thought Process: No Impairment Description of patient's judgement and insight: good, fair Psychotic Thoughts and Behaviors: denies any AVH Suicidal Ideation: No Current Homicidal Ideation?: No Discharge Summary - Discharge Note Consultations:: List each consultation separately and include: 1. Reason for request. 2. Findings. 3. Follow-up Summary of Hospital Course include:: 1. Description of specific treatment plan utilized for patients during their course of treatmen. 2. Summarize the time- course for resolution of acute symptoms and/or regressed behaviors. 3. Describe issues identified and worked on during hospitalization. 4. Describe medication utilized. 5. Describe medical problems identified and treated. 6. Reassessment of suicide risk - Final Diagnosis (DSM 5) Condition upon Discharge: FAIR Disposition: HOME/ ROUTINE Prescriptions/Medication Reconciliation: FLUoxetine [Prozac] 20 mg PO DAILY #30 cap Gabapentin [Neurontin] 300 mg PO BID #60 cap traZODone [Desyrel] 50 mg PO HS PRN #30 tab PRN Reason: Insomnia - Smoking Cessation Smoking Cessation Medication prescribed: No - Antipsychotic Medications Pt discharged on 2 or more routine antipsychotic medications: No
== END 2017-11-11 12:10 | disposition home or self-care (01) | DRG 885 ==
LOC: C.ER 12:13 → C.5E 17:21
PROVIDERS: ADMIT Psychiatry & Neurology Psychiatry; ATTEND Psychiatry & Neurology Psychiatry
PROC: GZ3ZZZZ Medication Management (ICD-10-PCS; principal; 2017-11-05)
PROC: HZ89ZZZ Medication Management for Substance Abuse Treatment, Other Replacement Medication (ICD-10-PCS; 2017-11-05)
PROC: GZHZZZZ Group Psychotherapy (ICD-10-PCS; 2017-11-05)
PROC: GZ56ZZZ Individual Psychotherapy, Supportive (ICD-10-PCS; 2017-11-05)
DX: F32.1 Major depressive disorder, single episode, moderate (principal); R45.851 Suicidal ideations; F10.10 Alcohol abuse, uncomplicated; F20.9 Schizophrenia, unspecified; Y90.8 Blood alcohol level of 240 mg/100 ml or more; J44.9 Chronic obstructive pulmonary disease, unspecified; F17.210 Nicotine dependence, cigarettes, uncomplicated; G47.00 Insomnia, unspecified

== ENCOUNTER 2018-08-12 08:10 | Emergency (ER) | payer MEDICAID, OTHER ==
[2018-08-12 08:23] VITALS: RESP 18; O2SAT 100; BMI 18.2
--- NOTE | 2018-08-12 08:44 | C.PDOC ---
History Of Present Illness 53 y/o male pt presents to the ER c/o chest pain for x1 month. Associated sx includes constant left shoulder and left arm. Pt reports of throbbing, pins and needles sensation on arm and shoulder. Pt admits he is an alcoholic and recently consumed heroin x4 days ago. Pt denies SOB, dizziness, headache, nausea, vomiting, diarrhea, fever and chills. Time Seen by Provider: 08/12/18 08:21 Chief Complaint (Nursing): Chest Pain History Per: Patient History/Exam Limitations: no limitations Onset/Duration Of Symptoms: Days (x1 month) Current Symptoms Are (Timing): Still Present Past Medical History Reviewed: Historical Data, Nursing Documentation, Vital Signs Vital Signs: Last Vital Signs Temp 97.5 F L 08/12/18 08:15 Pulse 74 08/12/18 08:15 Resp 18 08/12/18 08:15 BP 116/78 08/12/18 08:15 Pulse Ox 100 08/12/18 08:15 - Medical History PMH: COPD, Depression, Schizophrenia - [facility] Procedures ALCOHOL DETOXIFICATION (01/09/15) DETOXIFICATION SERVICES FOR SUBSTANCE ABUSE TREATMENT (12/14/16) GROUP SALES SYSTEMS ENGINEER FOR SUBSTANCE ABUSE TREATMENT, PSYCHOEDUCATION (10/20/16) GROUP PSYCHOTHERAPY (11/05/17) INDIV SALES SYSTEMS ENGINEER FOR SUBSTANCE ABUSE TREATMENT, PSYCHOEDUCATION (10/20/16) INDIV PSYCHOTHERAPY FOR SUBSTANCE ABUSE TREATMENT, SUPPORT (12/14/16) INDIV PSYCHOTHERAPY FOR SUBSTANCE ABUSE, COGNITIV BEHAVIORAL (12/14/16) INDIV PSYCHOTHERAPY FOR SUBSTANCE ABUSE, PSYCHOEDUCATION (12/14/16) INDIVIDUAL PSYCHOTHERAPY, SUPPORTIVE (11/05/17) MEDICATION MANAGEMENT (11/05/17) MEDS MGMT FOR SUBSTANCE ABUSE TREATMENT, OTH REPL MED (11/05/17) OTHER GROUP THERAPY (11/09/14) PSYCHIA INTERV/EVAL NEC (11/06/14) Family History: States: Unknown Family Hx - Social History Hx Tobacco Use: Yes Hx Alcohol Use: Yes (Daily) Hx Substance Use: Yes (reports "I only used heroin a few days ago") - Immunization History Hx Tetanus Toxoid Vaccination: No Hx Influenza Vaccination: No Hx Pneumococcal Vaccination: No Review Of Systems Except As Marked, All Systems Reviewed And Found Negative. Constitutional: Negative for: Fever, Chills Cardiovascular: Positive for: Chest Pain Respiratory: Negative for: Shortness of Breath Gastrointestinal: Negative for: Nausea, Vomiting, Diarrhea Musculoskeletal: Positive for: Shoulder Pain (left ), Arm Pain (left ) Neurological: Negative for: Headache, Dizziness Physical Exam - Physical Exam Appears: Non-toxic, No Acute Distress Skin: Warm, Dry Head: Normacephalic Eye(s): bilateral: Normal Inspection Oral Mucosa: Moist Throat: Normal Chest: Symmetrical, No Deformity, No Tenderness Cardiovascular: Rhythm Regular Respiratory: Normal Breath Sounds Gastrointestinal/Abdominal: Soft, No Tenderness Back: No CVA Tenderness Extremity: Normal ROM (x4), No Tenderness, No Pedal Edema, No Calf Tenderness, Capillary Refill (<2 sec), No Deformity, No Swelling Pulses: Left Femoral: Normal Neurological/Psych: Oriented x3, Normal Speech, Normal Motor, Normal Sensation ED Course And Treatment - Laboratory Results Result Diagrams: 08/12/18 08:56 08/12/18 08:56 ECG: Interpreted By Me, Viewed By Me ECG Rhythm: Sinus Rhythm Interpretation Of ECG: normal axis, LVH, early repolarization Rate From EC O2 Sat by Pulse Oximetry: 100 (RA) Pulse Ox Interpretation: Normal - Other Rad chest X-Ray: Read By Radiologist Interpretation: Accession No. : [id number]. Patient Name / ID : KENAN BEASLEY / [id number]. Exam Date : 08/12/2018 08:58:19 ( Approved ). Study Comment : Sex / Age : M / 53Y. Creator : Laura Moncada MD. Dictator : Laura Moncada MD. Seamer : Termite Treater : Laura Moncada MD. Approver2 : Report Date : 08/12/2018 09:20:17. My Comment : . Date of service: 08/12/2018. PROCEDURE: CHEST RADIOGRAPH, 1 VIEW. HISTORY: Chest pain. COMPARISON: 03/02/2014. FINDINGS: LUNGS: The lungs are well inflated and clear. PLEURA: No pneumothorax or pleural effusion. CARDIOVASCULAR: The heart is normal in size. No aortic atherosclerotic calcifications present. OSSEOUS STRUCTURES: Within normal limits for the patient's age. VISUALIZED UPPER ABDOMEN: Normal. OTHER FINDINGS: None. IMPRESSION: No active pulmonary disease. shoulder X-Ray: Read By Radiologist Interpretation: Accession No. : [id number]. Patient Name / ID : KENAN BEASLEY / [id number]. Exam Date : 08/12/2018 08:58:14 ( Approved ). Study Comment : Sex / Age : M / 53Y. Creator : Laura Moncada MD. Dictator : Laura Moncada MD. Seamer : Termite Treater : Laura Moncada MD. Approver2 : Report Date : 08/12/2018 10:51:08. My Comment : . Date of service: 08/12/2018. PROCEDURE: Radiographs of the left shoulder joint. HISTORY: shoulder pain. COMPARISON: No prior. FINDINGS: BONES: Bone alignment and mineralization are normal. There is no acute displaced fracture or bone destruction. JOINTS: The glenohumeral and acromioclavicular joints are preserved. No significant degenerative osteoarthrosis. SOFT TISSUES: Normal. OTHER FINDINGS: None. IMPRESSION: No acute displaced fracture or dislocation. Medical Decision Making Medical Decision Making: Impression: musculoskeletal pain Plans: -- chem labs -- blood work -- CXR -- Left shoulder XR -- Flexeril Reassess: Patient is resting comfortably, is no longer having chest pain or shortness of breath. Patient has no risk factors for pulmonary emboli or DVT. Clinical presentation is not suggestive of aortic dissection. Patient is being discharged home and is being advised to follow up with physician/clinic in 1-2 days. Disposition - Disposition Referrals: [facility] [Outside] [facility] [place] [Outside] Disposition: HOME/ ROUTINE Disposition Time: 11:27 Condition: GOOD Prescriptions: Ibuprofen [Motrin] 600 mg PO Q6 #20 tab Instructions: Shoulder Sprain Forms: Elastra (Tajik) - Clinical Impression Clinical Impression: Shoulder sprain, Chest pain - Scribe Statement The provider has reviewed the documentation as recorded by the Marleniibnelida Boone Do Provider Attestation: All medical record entries made by the Scribe were at my direction and personal ly dictated by me. I have reviewed the chart and agree that the record accurately reflects my personal performance of the history, physical exam, medical decision making, and the department course for this patient. I have also personally directed, reviewed, and agree with the discharge instructions and disposition.
[2018-08-12 09:06] LABS: BASO # 0.1 K/uL (0.0-0.2); BASO % 1.1 % (0.0-2.0); EOS # 0.2 K/uL (0.0-0.7); EOS % 4.3 % (0.0-4.0); HEMOGLOBIN 14.7 g/dL (12.0-18.0); LYMPH # 2.2 K/uL (1.0-4.3); LYMPH % 40.3 % (20.0-40.0); MEAN CELL VOLUME 95.8 fL (80.0-94.0); MEAN CORPUSCULAR HEMOGLOBIN 33.4 pg (27.0-31.0); MEAN CORPUSCULAR HGB CONC 34.8 g/dL (33.0-37.0); MEAN PLATELET VOLUME 7.5 fL (7.2-11.7); MONO # 0.7 K/uL (0.0-0.8); MONO % 13.2 % (0.0-10.0); NEUT # 2.3 K/uL (1.8-7.0); NEUT % 41.1 % (50.0-75.0); NRBC % 0.1 % (0.0-2.0); RBC 4.39 Mil/uL (4.40-5.90); RED CELL DISTRIBUTION WIDTH 13.5 % (11.5-14.5); WHITE BLOOD COUNT 5.5 K/uL (4.8-10.8)
[2018-08-12 09:14] LABS: ALB/GLOB RATIO 1.6 (1.0-2.1); ALBUMIN 4.4 g/dL (3.5-5.0); ALT/SGPT 16 U/L (21-72); AST/SGOT 44 U/L (17-59); BLOOD UREA NITROGEN 5 mg/dL (9-20); GFR NON-AFRICAN AMERICAN > 60
--- NOTE | 2018-08-12 09:23 | RAD ---
Date of service: 08/12/2018 PROCEDURE: CHEST RADIOGRAPH, 1 VIEW HISTORY: Chest pain COMPARISON: 03/02/2014. FINDINGS: LUNGS: The lungs are well inflated and clear. PLEURA: No pneumothorax or pleural effusion. CARDIOVASCULAR: The heart is normal in size. No aortic atherosclerotic calcifications present. OSSEOUS STRUCTURES: Within normal limits for the patient's age. VISUALIZED UPPER ABDOMEN: Normal. OTHER FINDINGS: None. IMPRESSION: No active pulmonary disease.
--- NOTE | 2018-08-12 10:54 | RAD ---
Date of service: 08/12/2018 PROCEDURE: Radiographs of the left shoulder joint HISTORY: shoulder pain COMPARISON: No prior. FINDINGS: BONES: Bone alignment and mineralization are normal. There is no acute displaced fracture or bone destruction. JOINTS: The glenohumeral and acromioclavicular joints are preserved. No significant degenerative osteoarthrosis. SOFT TISSUES: Normal. OTHER FINDINGS: None. IMPRESSION: No acute displaced fracture or dislocation.
[2018-08-12 11:27] VITALS: BP 120/72; PULSE 78; TEMP 98.1
== END 2018-08-12 11:27 | disposition home or self-care (01) ==
LOC: C.ER 08:10
DX: R07.9 Chest pain, unspecified (principal); S43.402A Unspecified sprain of left shoulder joint, initial encounter; X58.XXXA Exposure to other specified factors, initial encounter; F20.9 Schizophrenia, unspecified; J44.9 Chronic obstructive pulmonary disease, unspecified; Z72.0 Tobacco use
CPT/HCPCS: 71045; 73030; 80053; 84484; 85025; 96374; 99285; J1885